=== PATIENT | male | born 1965 | race Caucasian/White ===

== ENCOUNTER 2020-12-01 14:27 | Emergency (ER) | payer OTHER | END 2020-12-01 15:00 | disposition left against medical advice (07) | LOC: ED 14:27 | DX: T14.8XXA Other injury of unspecified body region, initial encounter (principal); Z53.21 Procedure and treatment not carried out due to patient leaving prior to being seen by health care provider; Y92.89 Other specified places as the place of occurrence of the external cause ==

== ENCOUNTER 2022-05-24 10:18 | Emergency (ER) | payer OTHER ==
[~2022-05-24] VITALS: Ht 167.6 cm; Wt 54.4 kg
[2022-05-24 10:47] VITALS: BP 125/83
== END 2022-05-24 11:58 | disposition home or self-care (01) ==
LOC: ED 10:18
DX: L03.011 Cellulitis of right finger (principal); Z88.0 Allergy status to penicillin; Z88.8 Allergy status to other drugs, medicaments and biological substances